=== PATIENT | female | born 1980 | race Two or more races ===

== ENCOUNTER 2020-10-21 22:21 | Emergency (ER) | payer MEDICAID ==
[~2020-10-21] VITALS: Ht 160 cm; Wt 115.0 kg
[~2020-10-21 22:21] MED LIST: CIPR-202 PO; HYDR-4383 PO; METR-159 PO
[2020-10-22] MEDS ORDERED: ibuprofen tablet 400 MG TABLET PO ONE (01:40)
[2020-10-22] MEDS ORDERED: acetaminophen 325mg tablet PO ONE (01:40)
[2020-10-22 01:48] VITALS: BP 117/75
== END 2020-10-22 02:06 | disposition home or self-care (01) ==
LOC: ER 22:22
DX: M25.512 Pain in left shoulder (principal); Z56.0 Unemployment, unspecified; Z79.2 Long term (current) use of antibiotics; Z79.899 Other long term (current) drug therapy
CPT/HCPCS: 71046; 93005; 99283